=== PATIENT | male | born 1965 | race Caucasian/White ===

== ENCOUNTER 2019-07-13 20:39 | Emergency (ER) | payer BC ==
[~2019-07-13] VITALS: Ht 190.5 cm; Wt 117.9 kg
[~2019-07-13 20:39] MED LIST: AUGMENTIN 875875 M1 PO; GLUCOPHAGE500 MG; GLYBURIDE 5 MG T5 M1; HYDROCODONE-AP1 EACH; MICRONASE5 MG PO; PERCOCET 5-3251 EACH PO
[2019-07-13 21:26] LABS: ABSOLUTE BASOPHILS 0.1 thou/uL (0.0-0.2); ABSOLUTE EOSINOPHILS 0.2 thou/uL (0.0-0.7); ABSOLUTE LYMPHOCYTES 2.3 thou/uL (0.8-5.3); ABSOLUTE MONOCYTES 0.9 thou/uL (0.0-1.2); ABSOLUTE NEUTROPHILS 5.8 thou/uL (1.6-8.1); BASOPHILS 0.9 %; HEMATOCRIT 40.5 % (42.0-52.0); HEMOGLOBIN 13.8 gm/dL (14.0-18.0); LYMPHOCYTES 24.6 %; MCH 29.6 pg (26.0-34.0); MCV 87.2 fL (80.0-100.0); MONOCYTES 9.7 %; MPV 10.2 fl. (7.2-11.1); NUCLEATED RBCS 0 /100WBC; PLATELET COUNT* 183 thou/uL (150-400); POLYS 62.8 %; RBC 4.65 mil/uL (4.50-6.00); RDW-CV 13.2 % (10.5-14.5); WBC 9.3 thou/uL (4.0-11.0)
[2019-07-13 21:32] LABS: CALCIUM 8.3 mg/dL (8.5-10.1); CREATININE 0.9 mg/dL (0.6-1.3); POTASSIUM 3.6 mmol/L (3.5-5.1)
[2019-07-13 21:37] LABS: ALBUMIN 2.6 g/dL (3.4-5.0); TOTAL BILIRUBIN 0.3 mg/dL (<0.1-1.0); TOTAL PROTEIN 6.6 g/dL (6.4-8.2)
[2019-07-13] MEDS ORDERED: NABUMETONE 750750 M1 PO (22:33)
[2019-07-13] MEDS ORDERED: DOXYCYCLINE 10100 MG PO (22:33)
[2019-07-13] MEDS ORDERED: NORCO 5-325 TA1 EAC1 PO (22:33)
[2019-07-13 22:56] VITALS: BP 124/89
== END 2019-07-13 22:58 | disposition home or self-care (01) ==
LOC: M.ERS 20:39
PROVIDERS: Nurse Practitioner Family
DX: N49.2 Inflammatory disorders of scrotum (principal); E11.9 Type 2 diabetes mellitus without complications; G47.30 Sleep apnea, unspecified